=== PATIENT | female | born 1965 | race African-American/Black ===

== ENCOUNTER 2020-07-16 17:40 | Inpatient (IN) | payer BC, MEDICAID ==
[~2020-07-16] VITALS: Ht 165.1 cm; Wt 57.6 kg
[2020-07-16 19:11] LABS: BASOPHILS % 0.4 % (0.0-2.0); HEMATOCRIT. 33.5 % (36.0-48.0); HEMOGLOBIN. 11.1 g/dL (12.0-16.0); LYMPHOCYTES % 22.8 % (20.0-50.0); MEAN CORPUSCULAR HEMOGLOBIN 31.2 pg (28.0-32.0); MEAN CORPUSCULAR VOLUME 94.4 fL (81.0-99.0); MEAN PLATELET VOLUME 9.6 fl (7.4-10.4); MONOCYTES % 3.4 % (2.0-8.0); NEUTROPHILS % 72.4 % (40.0-76.0); PLATELET 157 x1000/uL (130-400); RED BLOOD CELL COUNT 3.55 mill/uL (4.2-5.4); RED CELL DISTRIBUTION WIDTH 13.6 % (11.6-14.6)
[2020-07-16 19:17] LABS: INR 1.1; PROTHROMBIN TIME 11.4 sec (9.6-11.0)
[2020-07-16 19:32] LABS: CHLORIDE 110 mEq/L (98-107)
[2020-07-16] MEDS ORDERED: IOHEXOL-300 100 ML BOTTLE ONE (21:15)
[2020-07-17 08:00] VITALS: BP 159/78
[2020-07-17 09:30] VITALS: BP 159/78
[2020-07-17] MEDS ORDERED: ACETAMINOPHEN 650MG/20.3ML UDC GT PRN (10:15)
[2020-07-17] MEDS ORDERED: DOCUSATE SODIUM 100MG CAPSULE PO PRN (10:15)
[2020-07-17] MEDS ORDERED: GUAIFENESIN 200MG/10ML SUGAR FREE UDC PO PRN (10:15)
[2020-07-17] MEDS ORDERED: ACETAMINOPHEN 325MG TABLET PO PRN (10:15)
[2020-07-17] MEDS ORDERED: DIPHENHYDRAMINE 50MG/ML VIAL IV PRN (10:15)
[2020-07-17] MEDS ORDERED: AMLO5TAB88 PO (11:29)
[2020-07-17] MEDS ORDERED: LISI20TA31 PO (11:29)
[2020-07-17 12:00] VITALS: BP 156/71
[2020-07-17] MEDS: PANTOPRAZOLE SODIUM 40 MG/VIAL IV SCH (12:13)
[2020-07-17 12:37] VITALS: BP 157/71
[2020-07-17 13:17] LABS: CHLORIDE 110 mEq/L (98-107)
[2020-07-17 13:18] LABS: EOSINOPHILS % 1.1 % (0.0-5.0); HEMATOCRIT. 29.3 % (36.0-48.0); HEMOGLOBIN. 9.7 g/dL (12.0-16.0); LYMPHOCYTES % 48.2 % (20.0-50.0); MEAN CORPUSCULAR HEMOGLOBIN 31.3 pg (28.0-32.0); MEAN CORPUSCULAR VOLUME 93.9 fL (81.0-99.0); MEAN PLATELET VOLUME 9.4 fl (7.4-10.4); MONOCYTES % 7.3 % (2.0-8.0); NEUTROPHILS % 42.4 % (40.0-76.0); PLATELET 153 x1000/uL (130-400); RED BLOOD CELL COUNT 3.11 mill/uL (4.2-5.4); RED CELL DISTRIBUTION WIDTH 13.1 % (11.6-14.6)
[2020-07-17 13:26] LABS: TOTAL IRON BINDING CAPACITY 211 ug/dL (250-450)
[2020-07-17 16:00] VITALS: BP 146/77
[2020-07-17 20:00] VITALS: BP 148/64
[2020-07-17] MEDS: ACETAMINOPHEN 325MG TABLET PO PRN (21:13)
[2020-07-18] VITALS: BP 136/66
[2020-07-18 04:00] VITALS: BP 136/64
[2020-07-18] MEDS: ACETAMINOPHEN 325MG TABLET PO PRN ×2 (04:31→14:10)
[2020-07-18 06:25] LABS: CHLORIDE 108 mEq/L (98-107)
[2020-07-18 06:35] LABS: BASOPHILS % 0.4 % (0.0-2.0); EOSINOPHILS % 2.6 % (0.0-5.0); HDL CHOLESTEROL 68 mg/dL (40-59); HEMATOCRIT. 26.4 % (36.0-48.0); LYMPHOCYTES % 58.6 % (20.0-50.0); MEAN CORPUSCULAR HEMOGLOBIN 31.6 pg (28.0-32.0); MEAN CORPUSCULAR VOLUME 92.8 fL (81.0-99.0); MEAN PLATELET VOLUME 9.5 fl (7.4-10.4); MONOCYTES % 9.8 % (2.0-8.0); NEUTROPHILS % 28.6 % (40.0-76.0); PLATELET 150 x1000/uL (130-400); RED BLOOD CELL COUNT 2.84 mill/uL (4.2-5.4); RED CELL DISTRIBUTION WIDTH 13.1 % (11.6-14.6)
[2020-07-18 06:37] LABS: LDL CHOLESTEROL 78 mg/dL (5-100)
[2020-07-18] MEDS ORDERED: CEFTRIAXONE 1 G PREMIX 50 ML IV SCH (07:15)
[2020-07-18] MEDS ORDERED: METRONIDAZOLE 500 MG PREMIX 100 ML IV SCH (07:15)
[2020-07-18] MEDS ORDERED: LEVOFLOXACIN 250MG PREMIX 50 ML IV SCH (07:30)
[2020-07-18 08:00] VITALS: BP 145/67
[2020-07-18] MEDS: CEFTRIAXONE 1,000 MG in DEXTROSE 5% WATER 50 ML IV SCH (08:12)
[2020-07-18] MEDS: LEVOFLOXACIN 500MG PREMIX 100 ML IV SCH (08:12)
[2020-07-18] MEDS: PANTOPRAZOLE SODIUM 40 MG/VIAL IV SCH (08:13)
[2020-07-18] MEDS: AMLODIPINE 5MG TABLET PO SCH (09:30)
[2020-07-18] MEDS: LISINOPRIL 20MG TABLET PO SCH (09:30)
[2020-07-18 12:00] VITALS: BP 140/70
[2020-07-18 16:00] VITALS: BP 133/76
[2020-07-18 20:00] VITALS: BP 108/55
[2020-07-18 20:11] LABS: HEMATOCRIT 31.1 % (36.0-48.0); HEMOGLOBIN 10.3 g/dL (12.0-16.0)
[2020-07-19] VITALS: BP 150/70
[2020-07-19 01:08] LABS: HEMATOCRIT 27.4 % (36.0-48.0); HEMOGLOBIN 9.3 g/dL (12.0-16.0)
[2020-07-19 04:00] VITALS: BP 99/60
[2020-07-19 06:48] LABS: HEMOGLOBIN 9.1 g/dL (12.0-16.0)
[2020-07-19 08:00] VITALS: BP 133/77
[2020-07-19] MEDS: PANTOPRAZOLE SODIUM 40 MG/VIAL IV SCH (08:16)
[2020-07-19] MEDS: LISINOPRIL 20MG TABLET PO SCH (08:16)
[2020-07-19] MEDS: AMLODIPINE 5MG TABLET PO SCH (08:16)
[2020-07-19] MEDS: CEFTRIAXONE 1,000 MG in DEXTROSE 5% WATER 50 ML IV SCH (08:19)
[2020-07-19] MEDS: LEVOFLOXACIN 500MG PREMIX 100 ML IV SCH (08:58)
[2020-07-19 12:00] VITALS: BP 134/69
[2020-07-19 12:01] LABS: HEMATOCRIT 29.6 % (36.0-48.0); HEMOGLOBIN 9.9 g/dL (12.0-16.0)
[2020-07-19] MEDS ORDERED: CEPH500C2 MT (12:22)
[2020-07-19 13:54] VITALS: BP 134/69
== END 2020-07-19 15:18 | disposition home or self-care (01) | DRG 73 ==
LOC: ER 17:40 → 6EST 23:52 → ENRESERV 07-17 07:25 → 5WST 07-17 11:20
PROVIDERS: ADMIT Family Medicine; ATTEND Family Medicine
DX: G90.9 Disorder of the autonomic nervous system, unspecified (principal); K57.93 Diverticulitis of intestine, part unspecified, without perforation or abscess with bleeding; D62 Acute posthemorrhagic anemia; I10 Essential (primary) hypertension; Z88.8 Allergy status to other drugs, medicaments and biological substances; I95.9 Hypotension, unspecified; Z90.710 Acquired absence of both cervix and uterus
CPT/HCPCS: 36415; 71045; 74177; 80053; 80061; 83540; 83550; 83605; 83880; 84484; 85014; 85018; 85025; 86850; 86900; 93005; 99291; C9113; J0696; J1956; J7060; Q9967